=== PATIENT | female | born 1980 | race Caucasian/White ===

== ENCOUNTER → 2019-12-22 | Outpatient (CLI) | payer BC ==
--- NOTE | 2019-12-22 15:24 | KCIC ---
EXAMINATION: ANKLE LEFT 3V CLINICAL HISTORY: Medial ankle pain 5 days, pain after running. TECHNIQUE: ANKLE LEFT 3V Number of Images/Views: 3 COMPARISON: None FINDINGS: Joint spaces and alignment maintained. No acute fracture. Small indicated linear ossification projecting over the anterior tibiotalar joint on lateral view, nonspecific but may be related to remote trauma. Mild medial subcutaneous edema. IMPRESSION: No acute osseous abnormality left ankle. Electronically signed by: Bruce De Jesus DO (12/22/2019 3:21 PM) [id number]
== END ==
LOC: KCIC 14:31
PROVIDERS: ATTEND Nurse Practitioner
DX: R60.0 Localized edema (principal); M25.572 Pain in left ankle and joints of left foot
CPT/HCPCS: 73610